=== PATIENT | male | born 1995 | race Two or more races ===

== ENCOUNTER 2017-09-16 09:11 | Emergency (ER) | payer MEDICAID ==
[~2017-09-16] VITALS: Ht 172.7 cm; Wt 61.2 kg
--- NOTE | 2017-09-16 09:44 | NUR ---
BIB SELF C/O SELF PRESENTS TO ED: HEMATURIA, DYSURIA, R TESTICULAR PAIN. NAD NOTED, VSS, URINE COLLECTED AND SENT TO LAB. AT FOR EVAL.
[2017-09-16 09:56] LABS: BASOPHILS # (AUTO) 0.1 /CMM (0.0-0.2); BASOPHILS % (AUTO) 1.2 % (0.0-2.0); EOSINOPHILS # (AUTO) 0.2 /CMM (0.0-0.7); EOSINOPHILS % (AUTO) 3.8 % (0.0-6.0); HEMATOCRIT 46 % (39-51); HEMOGLOBIN 15.2 g/dL (13.5-17.5); LYMPHOCYTES % (AUTO) 32.1 % (20.0-44.0); MEAN CORPUSCULAR HEMOGLOBIN 30 PG (26.0-33.0); MEAN CORPUSCULAR HGB CONC 33 g/dl (31.0-36.0); MEAN CORPUSCULAR VOLUME 89 fL (80-96); MONOCYTES # (AUTO) 0.3 /CMM (0.1-1.30); MONOCYTES % (AUTO) 5.5 % (2.0-12.0); NEUTROPHILS # (AUTO) 3.8 /CMM (1.8-8.9); NEUTROPHILS % (AUTO) 57.4 % (43.0-81.0); PLATELET COUNT (AUTO) 398 /CMM (150-450); RDW COEFFICIENT OF VARIATION 12.4 (11.5-15.0); RED BLOOD CELL COUNT(AUTO) 5.15 MIL/uL (4.5-6.0); WHITE BLOOD COUNT (AUTO) 6.4 K/uL (4.3-11.0)
[2017-09-16 09:57] LABS: APPEARANCE,URINE Clear (CLEAR); BILIRUBIN,URINE Negative (NEGATIVE); BLOOD, URINE Moderate Ery/uL (NEGATIVE); COLOR,URINE Yellow (YELLOW); KETONES,URINE Negative (NEGATIVE); LEUKOCYTE ESTERASE ,URINE Negative (NEGATIVE); NITRITE, URINE Negative (NEGATIVE); PH,URINE 6.5 (5.0-8.0); PROTEIN,URINE Trace mg/dl (NEGATIVE); UGLUCOSE Negative (NEGATIVE); UROBILINOGEN,URINE 0.2 EU/dL (0.2)
[2017-09-16 10:06] LABS: CALCIUM, SERUM 9.3 mg/dL (8.5-10.1); CREATININE 0.9 mg/dL (0.6-1.3); POTASSIUM 3.7 mmol/L (3.5-5.1)
[2017-09-16 10:09] LABS: BACTERIA,URINE None seen /HPF (None Seen); SQUAMOUS EPITHELIAL CELL,UR Few /HPF (None Seen); WBC,URINE 0-3 /HPF (0-3)
[2017-09-16 10:12] LABS: BILIRUBIN,TOTAL 0.9 mg/dL (0.2-1.0); TOTAL PROTEIN, SERUM 8.2 g/dL (6.4-8.2)
--- NOTE | 2017-09-16 10:33 | NUR ---
PT TO [facility]AN
[2017-09-16 11:29] VITALS: BP 122/81
--- NOTE | 2017-09-16 11:32 | NUR ---
Patient discharged to home in stable condition. Written and verbal after care instructions given. Patient verbalizes understanding of instruction.
== END 2017-09-16 11:32 | disposition home or self-care (01) ==
LOC: ER 09:21
DX: N20.1 Calculus of ureter (principal); J45.909 Unspecified asthma, uncomplicated
CPT/HCPCS: 74176; 76870; 80053; 81001; 85025; 87491; 87591; 99285; A4606; Z7610; 36415; 81000-TC

== ENCOUNTER 2017-12-02 21:33 | Emergency (ER) | payer MEDICAID, OTHER ==
[~2017-12-02] VITALS: Ht 172.7 cm; Wt 63.0 kg
[2017-12-02] MEDS ORDERED: predniSONE 20 MG TABLET PO ONE (22:00)
[2017-12-02] MEDS ORDERED: IPRATROPIUM NEB FS 0.5 MG/2.5 ML AMPUL.NEB NEB ONE (22:00)
[2017-12-02] MEDS ORDERED: ALBUTEROL FS 2.5 MG/3 ML VIAL.NEB NEB ONE (22:00)
[2017-12-02] MEDS ORDERED: predniSONE 20 MG TABLET ONE (22:03)
[2017-12-02] MEDS ORDERED: IPRATROPIUM NEB FS 0.5 MG/2.5 ML AMPUL.NEB ONE (22:04)
[2017-12-02] MEDS ORDERED: ALBUTEROL FS 2.5 MG/3 ML VIAL.NEB ONE (22:04)
[2017-12-03 00:33] VITALS: BP 120/74
== END 2017-12-03 00:34 | disposition home or self-care (01) ==
LOC: ER 21:34
DX: R07.81 Pleurodynia (principal); F12.10 Cannabis abuse, uncomplicated; J45.909 Unspecified asthma, uncomplicated
CPT/HCPCS: 71045; 71250; 93005; 94640 ×2; 99284; A4606; J7512; Z7610

== ENCOUNTER 2019-07-05 04:23 | Emergency (ER) | payer MEDICAID, OTHER ==
[2019-07-05] MEDS ORDERED: IV NS 0.9% 1,000 ML BAG IV ONE ×2 (04:30→06:00)
[2019-07-05] MEDS ORDERED: ONDANSETRON HCL/PF 4 MG/2 ML VIAL IVP ONE (04:30)
[2019-07-05] MEDS ORDERED: NALOXONE HCL 2 MG in IV D5W 245 ML IV PRN (04:30)
[2019-07-05] MEDS ORDERED: ONDANSETRON HCL/PF 4 MG/2 ML VIAL ONE (04:41)
[2019-07-05] MEDS ORDERED: NALOXONE HCL 0.4 MG/ML AMPUL ONE (04:41)
[2019-07-05] MEDS ORDERED: POTASSIUM CHLORIDE 20 MEQ TAB.PRT.SR PO ONE ×2 (05:30→05:36)
== END 2019-07-05 08:20 | disposition home or self-care (01) ==
DX: T40.601A Poisoning by unspecified narcotics, accidental (unintentional), initial encounter (principal); J45.909 Unspecified asthma, uncomplicated; R94.31 Abnormal electrocardiogram [ECG] [EKG]; Y92.89 Other specified places as the place of occurrence of the external cause
CPT/HCPCS: 36415; 71045; 80048; 80076; 80305; 80307; 80329; 81001; 82962; 84484; 85025; 93005; 96365; 96366; 96368; 99284; G0480; J2310; J2405; J7030 ×2; J7060

== ENCOUNTER 2023-10-06 18:38 | Emergency (ER) | payer MEDICAID ==
[~2023-10-06] VITALS: Ht 172.7 cm; Wt 67.6 kg
[2023-10-06 18:52] VITALS: BP 119/85; TEMP 98.3; O2SAT 100
[2023-10-06] MEDS ORDERED: BENZ-13 PO (19:47)
[2023-10-06] MEDS ORDERED: CETI-90 PO (19:48)
== END 2023-10-06 20:26 | disposition home or self-care (01) ==
LOC: ER 18:42
DX: R07.89 Other chest pain (principal); R05.9 Cough, unspecified; J45.909 Unspecified asthma, uncomplicated
CPT/HCPCS: 71045-TC